=== PATIENT | female | born 1950 | race Caucasian/White ===

== ENCOUNTER 2025-03-16 07:27 | Outpatient (CLI) | payer MEDICARE, OTHER ==
--- NOTE | 2025-03-16 19:44 | CARDIOLOGY REPORT ---
APPROVED REPORT EXAM: Comprehensive 2D, Doppler, and color-flow Echocardiogram. Patient Location: OUT-PATIENT Blood Pressure: 147/86 mmHg Heart Rate: 72 bpm Rhythm: SINUS Indications MURMUR HYPERTENSION [employer]: none Previous echo: none 2D Dimensions RVDd 4.8 cm IVSd 1.2 (0.7-1.1cm) LVDd 4.9 cm PWd 0.8 (0.7-1.1cm) IVSs 1.5 (0.8-1.2cm) LVDs 3.0 (2.5-4.0cm) PWs 1.2 (0.8-1.2cm) LVOT Diameter 2.10 (1.8-2.4cm) LVEF(%) 68.5 (>50%) Ao Asc Diam. 3.62 cm IVC 12.08 mm FS (%) 38.4 % SV 78.9 ml M-Mode Dimensions Left Atrium(MM) 3.31 (2.5-4.0cm) Aortic Root 3.25 (2.2-3.7cm) Aortic Cusp Exc 1.59 (1.5-2.0cm) MV EPSS 0.4 (<0.5cm) Aortic Valve AoV Peak Nicho. 197.6 cm/s AoV VTI 43.0 cm AO Peak GR. 15.6 mmHg AO Mean GR. 8 mmHg LVOT VTI 27.73 cm LVOT Peak Nicho. 128.7 cm/s JOSE ANTONIO (VMAX) 2.25 cm2 JOSE ANTONIO (VTI) 2.23 cm2 Mitral Valve MV E Velocity 92.6 cm/s MV DECEL TIME 206 ms MV A Velocity 106.6 cm/s MV PHT 62 ms E/A Ratio 0.9 MVA (PHT) 3.53 cm2 TDI E/Medial E' 10.0 Tricuspid Valve TR P. Velocity 333 cm/s RAP ESTIMATE 5 mmHg TR Peak Gr. 45 mmHg RVSP 50 mmHg Pulmonary Vein S2 Velocity 68.64 cm/s PVa Duration 106 msec LEFT VENTRICLE Normal LV size and function. Mild septal hypertrophy. Overall LVEF is 65-70%. RIGHT VENTRICLE RV is moderately dilated in size with normal function. RVSP is estimated at 50 mmHg. ATRIA LA size is normal. AORTIC VALVE Trileaflet AV appears mildly sclerotic without stenosis or insufficiency. MITRAL VALVE Mild MV annular calcification without stenosis. Trace regurgitation. TRICUSPID VALVE TV appears structurally normal with mild regurgitation. PULMONIC VALVE Normal PV without stenosis, physiologic insufficiency. GREAT VESSELS Aortic root is normal in size. Ascending aorta is normal in size. The IVC is normal in size and collapses greater than 50% with inspiration. PERICARDIUM Normal pericardium. No effusion. Other Information Study Quality: Adequate Conclusion Overall LVEF is 65-70%. Normal LV size and function. Mild septal hypertrophy. RV is moderately dilated in size with normal function. RVSP is estimated at 50 mmHg. Trileaflet AV appears mildly sclerotic without stenosis or insufficiency. Mild MV annular calcification without stenosis. Trace regurgitation. TV appears structurally normal with mild regurgitation. Normal PV without stenosis, physiologic insufficiency. Normal pericardium. No effusion.
== END 2025-03-16 23:59 | disposition home or self-care (01) ==
LOC: CARD DIAG 07:27
PROVIDERS: ATTEND Family Medicine
DX: I08.8 Other rheumatic multiple valve diseases (principal); R01.1 Cardiac murmur, unspecified
CPT/HCPCS: 93306